=== PATIENT | female | born 1995 | race Asian ===

== ENCOUNTER 2016-05-10 14:18 | Emergency (ER) | payer SELFPAY ==
[2016-05-10] MEDS ORDERED: ONDANSETRON 4 MG TAB.RAPDIS PO ONE (15:01)
[2016-05-10] MEDS ORDERED: ACETAMINOPHEN 325 MG TABLET PO ONE (15:03)
--- NOTE | 2016-05-10 15:09 | ER Document Report ---
ED Medical Screen (RME) - General Mode of Arrival: Ambulatory Information source: Patient TRAVEL OUTSIDE OF THE [place] IN LAST 30 DAYS: No - HPI Onset: This morning Onset/Duration: Sudden Associated Symptoms: Other - see notes above <PREM BOOTHE - Last Filed: 05/10/16 15:06> <ADOLFO CAZARES - Last Filed: 05/10/16 15:58> - General Chief Complaint: Dizziness Stated Complaint: DIZZINESS Notes: 21 year old female with no prior medical problems presents to the ED complaining of diffuse abdominal pain that started earlier this morning. Patient additionally complains of nausea, but denies vomiting, diarrhea, or dysuria. Patient denies being . (PREM BOOTHE) - Related Data Allergies/Adverse Reactions: No Known Allergies Allergy (Verified 05/10/16 14:59) Home Medications: Current Home Medications No Home Medications 05/10/16 [History] Past Medical History - General Information source: Patient Renal/ Medical History: Denies: Hx Peritoneal Dialysis <PREM BOOTHE - Last Filed: 05/10/16 15:06> Review of Systems - Review of Systems Constitutional: No symptoms reported EENT: No symptoms reported Cardiovascular: No symptoms reported Respiratory: No symptoms reported Gastrointestinal: See HPI, Abdominal pain - diffuse, Nausea. denies: Diarrhea, Vomiting Genitourinary: No symptoms reported. denies: Dysuria Female Genitourinary: No symptoms reported Musculoskeletal: No symptoms reported Skin: No symptoms reported Hematologic/Lymphatic: No symptoms reported Neurological/Psychological: No symptoms reported -: Yes All other systems reviewed and negative <PREM BOOTHE - Last Filed: 05/10/16 15:06> Physical Exam - Vital signs Interpretation: Normal - General General appearance: Alert In distress: None - Respiratory Respiratory status: No respiratory distress - Abdominal Inspection: Normal Distension: No distension Tenderness: Tender - mild diffuse tenderness to palpation <PREM BOOTHE - Last Filed: 05/10/16 15:06> <ADOLFO CAZARES - Last Filed: 05/10/16 15:58> - Vital signs Vitals: Temp Pulse Resp BP Pulse Ox 98.9 F 75 18 101/59 L 98 05/10/16 14:35 05/10/16 14:35 05/10/16 14:35 05/10/16 14:35 05/10/16 14:35 Course <PREM BOOTHE - Last Filed: 05/10/16 15:06> - Laboratory Result Diagrams: 05/10/16 15:16 05/10/16 15:16 <ADOLFO CAZARES - Last Filed: 05/10/16 15:58> - Re-evaluation Re-evalutation: 05/10/16 15:58 I personally performed the services described in the documentation, reviewed and edited the documentation which was dictated to the scribe in my presence, and it accurately records my words and actions. (ADOLFO CAZARES) - Vital Signs Vital signs: Temp Pulse Resp BP Pulse Ox 98.9 F 75 18 101/59 L 98 05/10/16 14:35 05/10/16 14:35 05/10/16 14:35 05/10/16 14:35 05/10/16 14:35 - Laboratory Laboratory results interpreted by me: 05/10/16 05/10/16 15:16 15:16 WBC 13.3 H Seg Neutrophils % 89.4 H Lymphocytes % 5.6 L Absolute Neutrophils 11.9 H Urine Blood MODERATE H Scribe Documentation - Scribe Written by Abbey:: Abbey Vaca, 05/10/2016 1508 acting as scribe for :: Lacy <PREM BOOTHE - Last Filed: 05/10/16 15:06>
[2016-05-10 15:38] LABS: ABSOLUTE LYMPHOCYTES (AUTO) 0.7 10^3/uL (0.5-4.7); ABSOLUTE MONOCYTES (AUTO) 0.6 10^3/uL (0.1-1.4); ABSOLUTE NEUT (AUTO) 11.9 10^3/uL (1.7-8.2); BASOPHILS % (AUTO) 0.2 % (0-2); EOSINOPHILS % (AUTO) 0.2 % (0-6); HEMATOCRIT 39.2 % (36.0-47.0); HEMOGLOBIN 13.2 g/dL (12.0-15.5); HGB HCT DIFFERENCE 0.4; LYMPHOCYTES % (AUTO) 5.6 % (13-45); MEAN CORPUSCULAR HEMOGLOBIN 29.8 pg (27.0-33.4); MEAN CORPUSCULAR HGB CONC 33.6 g/dL (32.0-36.0); MEAN CORPUSCULAR VOLUME 89 fl (80-97); MONOCYTES % (AUTO) 4.6 % (3-13); RED BLOOD COUNT 4.41 10^6/uL (3.72-5.28); RED CELL DISTRIBUTION WIDTH 12.7 % (11.5-14.0); SEGMENTED NEUTROPHILS % (AUTO) 89.4 % (42-78); WHITE BLOOD COUNT 13.3 10^3/uL (4.0-10.5)
[2016-05-10 15:39] LABS: APPEARANCE,URINE SLIGHTLY-CLOUDY; BILIRUBIN,URINE NEGATIVE (NEGATIVE); GLUCOSE, URINE NEGATIVE (NEGATIVE); KETONES,URINE NEGATIVE (NEGATIVE); LEUKOCYTE ESTERASE,URINE NEGATIVE (NEGATIVE); NITRITE,URINE NEGATIVE (NEGATIVE); PROTEIN,URINE NEGATIVE (NEGATIVE); UROBILINOGEN,URINE NEGATIVE mg/dL (<2.0)
[2016-05-10 15:59] LABS: ALANINE AMINOTRANSFERASE 23 U/L (9-52); ALBUMIN 4.8 g/dL (3.5-5.0); ALKALINE PHOSPHATASE 66 U/L (38-126); ANION GAP 12 (5-19); ASPARTATE AMINO TRANSFERASE 20 U/L (14-36); BILIRUBIN,DIRECT 0.1 mg/dL (0.0-0.4); BILIRUBIN,TOTAL 0.8 mg/dL (0.2-1.3); BLOOD UREA NITROGEN 11 mg/dL (7-20); CALCIUM 9.7 mg/dL (8.4-10.2); CARBON DIOXIDE 28 mmol/L (22-30); CHLORIDE 102 mmol/L (98-107); GLUCOSE 91 mg/dL (75-110); POTASSIUM 4.5 mmol/L (3.6-5.0); SODIUM 141.9 mmol/L (137-145); TOTAL PROTEIN 7.9 g/dL (6.3-8.2)
--- NOTE | 2016-05-10 18:25 | ER Document Report ---
ED Dizziness/Weakness - General Chief Complaint: Dizziness Stated Complaint: DIZZINESS Mode of Arrival: Ambulatory Information source: Patient, Parent TRAVEL OUTSIDE OF THE [place] IN LAST 30 DAYS: No - HPI Quality of pain: Cramping Severity: Moderate Associated symptoms: Dizzy, Lightheaded, Nausea. denies: Chest pain, Confused, Diarrhea, Ear pain, Almost fainted, Fainted, Headache, Hearing loss, Less responsive, Loss of motor function, Loss of strength, Loss of sensation, Palpitations, Paralysis, Recent fall, Recent trauma, Ringing/roaring in ear, Short of breath, Sleeping more, Sweating, Vertigo, Vomiting, Weak all over Notes: Patient arrives with complaints of menstrual cramps that started earlier this morning. The patient started her menses this morning and noticed she was having some increased cramps over the last several hours. States that she normally has cramping during her menses, but this pain seems to be worse than normal. She denies any fevers. She denies any abdominal pain otherwise. She had nausea but denies any vomiting or diarrhea. States that earlier today her pain got severe she got nauseous and she felt like she was going to pass out. She did not actually pass out. She's had no syncope since then. She denies any blurred or loss vision. No unilateral numbness tingling or weakness. No chest pain or shortness of breath. She is on any blood thinners. She denies any dysuria or hematuria. No rash. No fever. No neck stiffness. She denies any other complaints at this time. She states that she is feeling significantly better after getting Zofran and Tylenol. - Related Data Allergies/Adverse Reactions: No Known Allergies Allergy (Verified 05/10/16 14:59) Past Medical History - General Information source: Patient - Social History Smoking Status: Unknown if Ever Smoked Family History: Reviewed & Not Pertinent Patient has suicidal ideation: No Patient has homicidal ideation: No Renal/ Medical History: Denies: Hx Peritoneal Dialysis Review of Systems - Review of Systems -: Yes All other systems reviewed and negative Physical Exam - Vital signs Vitals: Temp Pulse Resp BP Pulse Ox 98.9 F 75 18 101/59 L 98 05/10/16 14:35 05/10/16 14:35 05/10/16 14:35 05/10/16 14:35 05/10/16 14:35 - General General appearance: Appears well, Alert - HEENT Eyes: Normal Conjunctiva: Normal Ears: Normal Mucous membranes: Normal Pharynx: Normal Neck: Normal - Respiratory Respiratory status: No respiratory distress Breath sounds: Normal. No: Rhonchi, Stridor, Wheezing - Cardiovascular Rhythm: Regular Heart sounds: Normal auscultation Murmur: Yes Systolic murmur grade 1-6: 2 Friction rub: No - Abdominal Inspection: Normal Distension: No distension Bowel sounds: Normal Tenderness: Nontender Organomegaly: No organomegaly - Back Back: Normal, Nontender - Extremities General upper extremity: Normal inspection, Nontender, Normal color, Normal ROM , Normal temperature General lower extremity: Normal inspection, Nontender, Normal color, Normal ROM , Normal temperature, Normal weight bearing. No: Judith's sign - Neurological Neuro grossly intact: Yes Cognition: Normal Orientation: AAOx4 Alex Coma Scale Eye Opening: Spontaneous Alex Coma Scale Verbal: Oriented [place] Coma Scale Motor: Obeys Commands Alex Coma Scale Total: 15 Speech: Normal Motor strength normal: LUE, RUE, LLE, RLE Sensory: Normal - Psychological Associated symptoms: Normal affect, Normal mood - Skin Skin Temperature: Warm Skin Moisture: Dry Skin Color: Normal Course - Re-evaluation Re-evalutation: 05/10/16 18:24 Patient is nontoxic. Stable vitals. The patient earlier menses this morning and is having increasing menstrual cramps. She is having increasing pain and nausea earlier today and felt like she was going to pass out. She had no actual syncope. She has a completely normal neurological exam. Hemoglobin is stable. No signs of UTI. She has no tenderness on abdominal exam at this time. The patient states that she is feeling significantly better at this time. The patient will be discharged home with a prescription for Phenergan as needed for nausea, she was instructed to take [id number] NSAIDs to help with her pelvic cramping. Follow up with her doctor at the next day appointment for recheck. Follow-up sooner for increased pain, fever, persistent vomiting, or any further concerns. The patient's emergency department workup and current diagnosis were explained to the patient and or family. Follow-up instructions were provided. Medications if prescribed were discussed. Instructions for when to return to the emergency department including specific worrisome symptoms were discussed with the patient and/or family. - Vital Signs Vital signs: Temp Pulse Resp BP Pulse Ox 98.9 F 75 18 101/59 L 98 05/10/16 14:35 05/10/16 14:35 05/10/16 14:35 05/10/16 14:35 05/10/16 14:35 - Laboratory Result Diagrams: 05/10/16 15:16 05/10/16 15:16 Laboratory results interpreted by me: 05/10/16 05/10/16 15:16 15:16 WBC 13.3 H Seg Neutrophils % 89.4 H Lymphocytes % 5.6 L Absolute Neutrophils 11.9 H Urine Blood MODERATE H Discharge - Discharge Clinical Impression: Menstrual cramps, Dizziness Condition: Stable Disposition: HOME, SELF-CARE Instructions: Dizziness ([facility]), Abdominal Pain ([facility]) Additional Instructions: Take medications as prescribed. Drink plenty of fluids and rest. Take over-the -counter Aleve (2 tablets every 12 hours) as needed for pain and cramps. Follow -up with your doctor at the next available appointment for recheck. Follow-up sooner for increased pain, fever, persistent vomiting, chest pain, shortness of breath, passing out, or any further concerns. Review have a heart murmur on today's exam, he should have this reevaluated with your primary care doctor at the next table appointment. Prescriptions: Promethazine HCl [Phenergan 25 mg Tablet] 25 mg PO Q6HP PRN #10 tablet PRN Reason:
[2016-05-10 20:57] VITALS: BP 112/74
== END 2016-05-10 18:45 | disposition home or self-care (01) ==
LOC: ER 14:18
DX: R10.9 Unspecified abdominal pain (principal); R42 Dizziness and giddiness; R11.0 Nausea
CPT/HCPCS: 99284; 36415; 84703; 85025; 80053; 81001; S0119